=== PATIENT | male | born 1985 ===

== ENCOUNTER 2017-12-04 14:56 | Emergency (ER) | payer MEDICAID, OTHER ==
[2017-12-04 14:56] VITALS: BMI 26.8
[2017-12-04 15:13] VITALS: BP 134/80; PULSE 83; RESP 18; TEMP 98.5; O2SAT 100
--- NOTE | 2017-12-04 15:53 | ED PDOC ---
HPI: Back Time Seen by Provider: 12/04/17 15:13 Chief Complaint (Nursing): Back Pain Chief Complaint (Provider): Back Pain History Per: Patient History/Exam Limitations: no limitations Onset/Duration Of Symptoms: Days (x1 week) Current Symptoms Are (Timing): Still Present Additional Complaint(s): 32 year old male presents to the ED for evaluation of atraumatic lower back pain x 1 week. He reports the pain radiates to his right leg, but denies incontinence and urinary symptoms. Pt states he has no history of lower back pain, despite his job requiring him to be on his feet all day. He notes taking Aleve with no relief. 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 PMD: Boone De La Fuente MD Past Medical History Reviewed: Historical Data, Nursing Documentation, Vital Signs Vital Signs: Last Vital Signs Temp 98.5 F 12/04/17 15:11 Pulse 83 12/04/17 15:11 Resp 18 12/04/17 15:11 BP 134/80 12/04/17 15:11 Pulse Ox 100 12/04/17 15:11 - Medical History PMH: HIV - Surgical History Surgical History: Tonsillectomy - Family History Family History: States: No Known Family Hx - Living Arrangements Living Arrangements: With Family - Social History Current smoker - smoking cessation education provided: No Ex-Smoker (has not smoked in the last 12 months): Yes (quit 2 years ago) Alcohol: None Drugs: Denies - Home Medications Home Medications: Ambulatory Orders Medication Instructions Recorded Darunavir/Cobicistat [Prezcobix 1 tab PO DAILY 05/12/15 800 mg-150 mg Tablet] Emtricitabine/Tenofovir Diso 1 tab PO DAILY 05/12/15 [Truvada 200 MG-300 MG] Amoxicillin 875 mg PO BID #20 tab 04/14/16 predniSONE [Prednisone] 20 mg PO BID #10 tab 04/14/16 Cyclobenzaprine [Cyclobenzaprine 10 mg PO TID PRN #20 tab 12/04/17 HCl] Naproxen [Naprosyn] 500 mg PO BID #20 tab 12/04/17 - Allergies Allergies/Adverse Reactions: Allergies Allergy/AdvReac Type Severity Reaction Status Date / Time No Known Allergies Allergy Verified 12/04/17 15:11 Review of Systems ROS Statement: Except As Marked, All Systems Reviewed And Found Negative Constitutional: Negative for: Fever Genitourinary Male: Negative for: Dysuria, Frequency, Incontinence Musculoskeletal: Positive for: Back Pain (atraumatic lower, radiating to right leg) Physical Exam - Reviewed Nursing Documentation Reviewed: Yes Vital Signs Reviewed: Yes - Physical Exam Appears: Positive for: Well, Non-toxic, No Acute Distress Head Exam: Positive for: ATRAUMATIC, NORMAL INSPECTION, NORMOCEPHALIC Skin: Positive for: Normal Color. Negative for: Rash Eye Exam: Positive for: Normal appearance Back: Positive for: Other (mild lower lumbar region tenderness, negative bilateral straight leg raise). Negative for: L CVA Tenderness, R CVA Tenderness Neurologic/Psych: Positive for: Alert, Oriented - ECG O2 Sat by Pulse Oximetry: 100 (RA) Pulse Ox Interpretation: Normal - Other Rad LS Spine X-ray X-Ray: Interpreted by Me, Viewed By Me X-Ray Interpretation: no fx, no dis Medical Decision Making Medical Decision Making: Time: 1548 Impression: 32 year old male with lower back pain Plan: --Flexeril 10 mg PO --Toradol 30 mg IM --Lumbar spine XR Patient reports improvement to pain s/p meds given. He is aware of x-ray results. All questions answered. Patient was given rx naprosyn and flexeril and was referred to ortho combat control manager for follow up. ~ Scribe Attestation: Documented by Re Gonzalez, acting as a scribe for Charity Koch PA-C. Provider Scribe Attestation: All medical record entries made by the Scribe were at my direction and personally dictated by me. I have reviewed the chart and agree that the record accurately reflects my personal performance of the history, physical exam, medical decision making, and the department course for this patient. I have also personally directed, reviewed, and agree with the discharge instructions and disposition. Disposition - Clinical Impression Clinical Impression: Back strain - Patient ED Disposition Is Patient to be Admitted: No Counseled Patient/Family Regarding: Studies Performed, Diagnosis, Need For Followup, Rx Given - Disposition Referrals: Anup Kong III, MD [Staff Provider] - Disposition: Routine/Home Disposition Time: 16:44 Condition: STABLE Additional Instructions: Rest and ice affected area. Take prescription meds as directed as needed for pain. Follow-up with orthopedist or primary doctor for any persistent symptoms. Prescriptions: Cyclobenzaprine [Cyclobenzaprine HCl] 10 mg PO TID PRN #20 tab PRN Reason: Muscle Spasm Naproxen [Naprosyn] 500 mg PO BID #20 tab Instructions: Muscle Strain (DC), Low Back Pain in Adults, Back Exercises Forms: [facility] (Korean)
--- NOTE | 2017-12-04 17:08 | RAD ---
Date of service: 12/04/2017 PROCEDURE: Radiographs of the Lumbar Spine. HISTORY: low back pain COMPARISON: No prior. FINDINGS: BONES: Normal alignment. No listhesis. No fracture. DISC SPACES: Unremarkable. OTHER FINDINGS: None. IMPRESSION: Unremarkable radiographs of the lumbar spine.
== END 2017-12-04 16:55 | disposition home or self-care (01) ==
LOC: H.ER 14:56
DX: S39.012A Strain of muscle, fascia and tendon of lower back, initial encounter (principal); Z87.891 Personal history of nicotine dependence
CPT/HCPCS: 72100; 96372; 99282; J1885